=== PATIENT | female | born 1985 | race Caucasian/White ===

== ENCOUNTER 2022-02-01 02:36 | Emergency (ER) | payer BC, SELFPAY ==
--- NOTE | ~2022-02-01 | CT_ITS ---
EXAMINATION: CT HEAD W/O IV CONTRAST CT ORBITS WITHOUT IV CONTRAST CT CERVICAL SPINE W/O IV CONTRAST CLINICAL INFORMATION: Trauma. COMPARISON: None TECHNIQUE: Head - Contiguous axial imaging of the head was performed from the skull base to the vertex without the administration of intravenous contrast, and axial images are reconstructed at 2 mm and 5 mm slice thickness. Cervical spine and orbits - Volumetric, helical CT acquisitions of the cervical spine and orbits obtained without contrast; in addition to the standard set of axial images, multiplanar reformatted images were provided in the coronal and sagittal imaging planes. This CT examination was performed using dose optimization techniques as appropriate, variously including the following: *Automated exposure control *Adjustment of mA and/or kV according to patient size (this includes techniques or standardized protocols for targeted exams where dose is matched to indication/reason for exam; i.e. extremities or head) *Use of iterative reconstruction technique DLP: 1034 mGy-cm (total) FINDINGS: HEAD: Mild motion degradation of images. No evidence of intracranial hemorrhage, focal mass effect or midline shift. Chronic encephalomalacia of the left corpus striatum. Otherwise, the bains to white matter differentiation is preserved. The ventricles have normal size and configuration. The sulci and basilar cisterns are unremarkable. No extra-axial fluid collections. The calvarium is intact and the mastoid air cells and middle ear cavities are clear. ORBITS/FACIAL BONES: Posttraumatic soft tissue swelling in the right periorbital and premaxillary region. The globes and orbital rodrigues, including lamina papyracea, are intact. The orbital apex, optic canals, and retrobulbar fat planes are normal. The maxilla, mandible and temporomandibular joints are intact. Nasal bones, pterygoid plates and zygomatic arches are normal. Mucosal thickening of left sphenoid sinus, posterior left ethmoid air cells and left maxillary sinus which has a mucus retention cyst. No air-fluid levels in the paranasal sinuses. Incidentally noted is left-sided nasal septal deviation which encroaches upon the middle meatus. CERVICAL SPINE: The skull base, C1 and C2 lateral masses, dens and atlantodental articulation are intact. The vertebral body heights and alignment are maintained. No fractures in the anterior or posterior elements. No prevertebral soft tissue swelling. Mild-to moderate degenerative disc space loss, vertebral osteophyte formation and uncovertebral joint hypertrophy at C4-C5 and C5-C6. The degenerative changes are associated with reversal of cervical lordosis. Posterior disc-osteophyte complexes at C4-C5 and C5-C6 produce mild narrowing of the central spinal canal and mild bilateral neural foraminal stenosis. No spinal hematoma or focal fluid collection in the visualized neck. The examined lung apices are clear. Thyroid gland is normal. 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 No acute infarction. No intracranial hemorrhage or other acute intracranial pathology. * No fracture or malalignment in the degenerated cervical spine. * No evidence of orbital fracture or globe injury. However, there is posttraumatic soft tissue swelling in the periorbital and premaxillary region of the face.
[2022-02-01 02:50] VITALS: BP 149/94; PULSE 78; RESP 16; TEMP 36.4; O2SAT 100; BMI 19.3
[2022-02-01 06:35] VITALS: BP 125/78; PULSE 75; RESP 14; TEMP 36.9; O2SAT 99
--- NOTE | 2022-02-01 06:52 | ED.HEATRA ---
HPI - Head Injury General Chief complaint: Head Injury Stated complaint: fall, head strike Time Seen by Provider: 02/01/22 06:39 Source: patient Mode of arrival: ambulatory Limitations: no limitations History of Present Illness HPI Narrative: States that tripped and fell at home striked head against door fram,no LOC,no vomiting,she is ambulatory to the ED,denies ETOH abuse Complaint: head injury Onset (ago): hour(s) (8 h ago) Mechanism of Injury: fall Place: home Loss of Consciousness: no Location of injury: frontal Severity: moderate Radiation: none Other Injuries: none Related Data Allergies Allergy/AdvReac Type Severity Reaction Status Date / Time Unable to Assess Allergy Unverified 02/01/22 06:50 Review of Systems Eyes: Eyes: Reports no additional eye complaints ENT: Reports system reviewed and no additional complaints, except as documented Cardiovascular: Cardiovascular: Reports no additional cardiovascular complaints Respiratory: Respiratory: Reports no additional respiratory complaints Gastrointestinal: Gastrointestinal: Reports no additional gastrointestinal complaints Genitourinary: Genitourinary: Reports no additional female genitourinary complaints PMFSH Social History Social History Advance Directives: No Advance Directives Information Provided: No Physical Exam Vital Signs: Vital Signs: Last Vital Signs Temp 98.5 F 02/01/22 06:35 Pulse 74 02/01/22 09:46 Resp 18 02/01/22 09:46 BP 122/86 02/01/22 09:46 Pulse Ox 97 02/01/22 09:46 O2 Del Method 02/01/22 09:46 BMI result Body Mass Index 19.3 Const: General: cooperative Nutritional Appearance: well nourished Orientation/consciousness: patient oriented x3 Limitations: no limitations HEENT: Other: RT orbital hematoma present Ears: hearing grossly normal bilaterally Face and sinus: Yes normal facial exam Mouth: Normal oral and palatal mucosa present Teeth and gingiva: dentition normal Throat: Yes posterior oropharynx normal Eyes: Other: Rt orbital hematoma Visual Sosa: normal visual sosa by confrontation Alignment and Position: alignment normal Conjunctivae: conjunctivae normal Sclerae: sclerae normal Corneas: corneas normal EOM: EOMs intact bilaterally Neck: Neck: Yes full ROM Chest: Chest palpation & inspection: normal inspection of the chest Resp: Effort & Inspection: normal respiratory effort Auscultation: clear to auscultation bilaterally Cardio: Jugular venous distension: no JVD Rate: regular rate Rhythm: regular rhythm GI: Inspection: Yes normal to inspection Palpation (GI): Soft to palpation, not firm, nontender and no guarding Percussion: Yes normal to percussion Auscultation: normal bowel sounds Skin: General skin exam: no rashes or lesions noted, elasticity normal and turgor normal Lesions: no lesions Rashes: no rashes Trauma: no lacerations or abrasions Hair: normal Neuro: General: patient oriented x3 Course Reevaluation(s) Reevaluation #1: CT showed NAD ,stable will d/c home MDM - Head Injury Imaging Data ct head/cspine/orbit: Radiologist's impression: elling in the right periorbital and premaxillary region. The globes and orbital rodriuges, including lamina papyracea, are intact.? The orbital apex, optic canals, and retrobulbar fat planes are normal.? The maxilla, mandible and temporomandibular joints are intact. Nasal bones, pterygoid plates and zygomatic arches are normal. Mucosal thickening of left sphenoid sinus, posterior left ethmoid air cells and left maxillary sinus which has a mucus retention cyst. No air-fluid levels in the paranasal sinuses. Incidentally noted is left-sided nasal septal deviation which encroaches upon the middle meatus. CERVICAL SPINE: The skull base, C1 and C2 lateral masses, dens and atlantodental articulation are intact. The vertebral body heights and alignment are maintained.? No fractures in the anterior or posterior elements. No prevertebral soft tissue swelling. Mild-to moderate degenerative disc space loss, vertebral osteophyte formation and uncovertebral joint hypertrophy at C4-C5 and C5-C6. The degenerative changes are associated with reversal of cervical lordosis. Posterior disc-osteophyte complexes at C4-C5 and C5-C6 produce mild narrowing of the central spinal canal and mild bilateral neural foraminal stenosis. No spinal hematoma or focal fluid collection in the visualized neck. The examined lung apices are clear. Thyroid gland is normal.? CT/CT orbit BI wo IV con IMPRESSION: *? 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 No acute infarction. No intracranial hemorrhage or other acute intracranial pathology. *? No fracture or malalignment in the degenerated cervical spine. *? No evidence of orbital fracture or globe injury. However, there is posttraumatic soft tissue swelling in the periorbital and premaxillary region of the face. ? ? ? Discharge Plan Discharge Clinical Impression: Closed head injury, Hematoma of right orbit Patient Disposition: Home, Self-Care Instructions: Head Injury (ED) Referrals: PhysicianChris J [Primary Care Provider] - 3 days Stand Alone Forms: Work/School Release Interventions: ED Discharge Assessment Last Done: 02/01/22 09:51 Discharge Date/Time: 02/01/22 09:52
[2022-02-01 07:53] VITALS: BP 129/75; PULSE 65; RESP 15; O2SAT 99
[2022-02-01 09:46] VITALS: BP 122/86; PULSE 74; RESP 18; O2SAT 97
== END 2022-02-01 09:52 | disposition home or self-care (01) ==
PROVIDERS: Emergency Provider Emergency Medicine
DX: S00.11XA Contusion of right eyelid and periocular area, initial encounter (principal); M54.2 Cervicalgia; H57.11 Ocular pain, right eye; R51.9 Headache, unspecified; Y29.XXXA Contact with blunt object, undetermined intent, initial encounter; Y93.9 Activity, unspecified; Y92.009 Unspecified place in unspecified non-institutional (private) residence as the place of occurrence of the external cause; Y99.9 Unspecified external cause status
CPT/HCPCS: 70450; 70480; 72125; 99284